=== PATIENT | male | born 1990 | race Two or more races ===

== ENCOUNTER 2024-12-15 19:40 | Emergency (ER) | payer OTHER ==
[~2024-12-15] VITALS: Ht 170.2 cm; Wt 78.9 kg
[~2024-12-15 19:40] MED LIST: TOPROL XL50 M1 PO
[2024-12-15 22:50] LABS: HEMOGLOBIN 16.8 g/dL (13-16.00); MEAN CELL VOLUME 88.8 fL (80.0-100.00); MEAN CORPUSCULAR HGB CONC 34.9 g/dl (32.0-36.0); PLATELET COUNT 203 K/uL (150-450); RED CELL DISTRIBUTION WIDTH 13.2 % (11.5-14.5)
[2024-12-16] MEDS ORDERED: ACETAMINOPHEN500 M1 PO (00:43)
[2024-12-16] MEDS ORDERED: OSEL75CA PO (00:43)
[2024-12-16] MEDS ORDERED: GILTUSS COUGH-118 M1 PO (00:43)
== END 2024-12-16 00:59 | disposition home or self-care (01) ==
LOC: ER 19:43
PROVIDERS: Preventive Medicine Public Health & General Preventive Medicine
DX: J10.1 Influenza due to other identified influenza virus with other respiratory manifestations (principal); E05.80 Other thyrotoxicosis without thyrotoxic crisis or storm